=== PATIENT | male | born 1975 | race Caucasian/White ===

== ENCOUNTER 2019-03-31 05:55 | Day surgery (SDC) | payer OTHER ==
[~2019-03-31 05:55] MED LIST: Buffered Lidocaine 1% SYRIN* 1 ML/SYRINGE INTRADERM ONE
[2019-03-31] MEDS ORDERED: Famotidine IV* 10 MG/ML 2 ML (20 mg) IV ONE (06:00)
[2019-03-31] MEDS ORDERED: Dexamethasone IV* 4 MG/ML 1 ML (4 MG) IV SLOW PU ONE (06:00)
[2019-03-31] MEDS ORDERED: Lactated Ringers 1000 ML Bag* 1,000 ML IV SCH (06:00)
[2019-03-31] MEDS ORDERED: ceFAZolin 2 GM in NS PREMIX(*) 2 GM/100 ML BAG IVPB ONE (07:57)
[2019-03-31] MEDS ORDERED: Famotidine IV* 10 MG/ML 2 ML (20 mg) ONE (07:57)
[2019-03-31] MEDS ORDERED: Dexamethasone IV* 4 MG/ML 1 ML (4 MG) ONE (07:57)
[2019-03-31] MEDS ORDERED: Bupivacaine 0.25% EPI 200,000* 30 ML SDV ONE (09:43)
[2019-03-31] MEDS ORDERED: EPINEPHRINE 1 MG/ML 1 ML VIAL ONE (09:43)
[2019-03-31] MEDS ORDERED: KETAMINE HCL* 50 MG/ML 10 ML VIAL ONE (09:45)
[2019-03-31] MEDS ORDERED: Propofol* 10 MG/ML 20 ML BTL ONE (09:45)
[2019-03-31] MEDS ORDERED: fentaNYL* 50 MCG/ML 5 ML VIAL (250 MCG VIAL) ONE (09:45)
[2019-03-31] MEDS ORDERED: Ketorolac INJ* 30 MG/ML 1 ML VIAL ONE (09:45)
[2019-03-31] MEDS ORDERED: Midazolam* 1 MG/ML 5 ML VIAL (5 MG) ONE (09:45)
[2019-03-31] MEDS ORDERED: Lidocaine 2% PF * 5 ML VIAL ONE (09:46)
[2019-03-31] MEDS ORDERED: Morphine 4 MG/ML VIAL (1 ml) 4 MG/ML VIAL IV PRN (09:57)
[2019-03-31] MEDS ORDERED: Naloxone* 0.4 MG/ML 1 ML VIAL IV PRN (09:57)
[2019-03-31] MEDS ORDERED: PROCHLORPERAZINE INJ 5 MG/ML 2 ML VIAL IV PRN (09:57)
[2019-03-31] MEDS ORDERED: oxyCODONE/Acetamin 5/325 MG* TAB PO PRN (09:57)
[2019-03-31] MEDS ORDERED: fentaNYL* 50 MCG/ML 2 ML VIAL (100 MCG VIAL) IV PRN (09:57)
[2019-03-31] MEDS ORDERED: HYDROcodone/ACETAMIN 5-325 MG* 1 TAB PO PRN (09:57)
[2019-03-31] MEDS ORDERED: Ondansetron INJ* 2 MG/ML VIAL ONE (12:12)
[2019-03-31 14:48] VITALS: BP 144/94
--- NOTE | 2019-04-02 02:10 | OP ---
DATE OF OPERATION: 03/31/19 [facility] DATE OF : 79 SURGEON: Erich Pate MD SEAT MAKER: ELIZA Zamarripa. A physician multimedia production assistant was required for the length of the procedure, for assistance with patient positioning, retraction, instrumentation, and closure. ANESTHESIOLOGIST: Dr. Valeria Lo. ANESTHESIA: General anesthesia, local anesthesia using Marcaine 0.25% with epinephrine approximately 30 cc. PRE-OP DIAGNOSES: 1. Right knee tibial eminence fracture, subacute, otherwise known as an ACL distal avulsion fracture. 2. Right knee possible peripheral medial meniscus tear, nondisplaced. 3. Right knee possible anterior root lateral meniscus tear. POST-OP DIAGNOSIS: Right knee tibial eminence fracture, subacute, otherwise known as ACL distal avulsion fracture. OPERATIVE PROCEDURE: Right knee arthroscopic reduction internal fixation tibial eminence fracture, which included an ACL distal avulsion fracture, fracture also including the insertion site for anterior root lateral meniscus. ANTIBIOTICS: Ancef 2 g IV. IV FLUIDS: See anesthesia note. [id number] TIME: 112 minutes. TOURNIQUET TIME: 114 minutes at 300 mmHg. SPECIMENS: None. IMPLANTS: FiberWire #2 stitches x2. SutureTak [place] x1, both from [employer]. COMPLICATIONS: None. ESTIMATED BLOOD LOSS: Minimal. INDICATIONS FOR PROCEDURE: The patient is a 43-year-old man, prisoner, who injured himself on 09/04/18. The patient is now 7 months from his injury. Multiple delays in taking him to surgery. Delay in his presenting to my office. Delay in his getting an MRI scan and following up. A delay in scheduling surgery. MRI scan demonstrated no clear high grade injury to the ACL ligament itself, but it comminuted grade 4 type avulsion fracture of the tibial eminence at the insertion point of the ACL ligament. Some of these fracture fragments also look to include the anterior root, insertion of the lateral meniscus. The patient continued to have a symptomatic right knee and this is an operative injury so we proceeded forward with surgery. Discussed risks and potential complications of surgery. I booked the patient for a possible arthroscopic reduction internal fixation of the fracture. I also certainly booked him for a possible ACL reconstruction. All injuries of this type need to be booked for a possible ACL reconstruction as sometimes the ligament stretches before the bone fractures and sometimes the bone is not repairable. This is especially so with a chronic injury. I booked the patient for a possible ACL reconstruction with [id number] allograft. Given the MRI findings regarding both the medial and lateral meniscus, I also consented him for possible treatment of medial and/or lateral meniscus. DESCRIPTION OF PROCEDURE: In the preoperative holding, the patient signed a written consent. Operative extremity was marked in the preoperative holding. The patient was taken back to the operating room, placed supine on the operating room table. Sedated and intubated. Tourniquet was placed about the right proximal thigh. [place] bumps were placed under the right hemipelvis. A lateral post was applied to the table. Right lower extremity was prepped and draped. Surgical time-out was performed. Esmarch was applied and tourniquet was elevated. Anterolateral knee arthroscopy portal was established using standard technique. I evaluated the patellofemoral compartment. No articular cartilage injury. Moved to the medial compartment. No articular cartilage injury. No meniscus tear. Moved to the lateral compartment. No clear lateral meniscal tear. No articular cartilage injury. Moved to the intracondylar notch. No full-thickness disruption of the ACL. It was remarkable how smooth and healed everything looked initially, given the chronicity of this injury. With closer inspection there did appear to be some very minimal elevation of the insertion point of the ACL as well as the anterior root lateral meniscus. I decided that there was a possible success for arthroscopic reduction internal fixation at this point. Instruments were removed from the knee and the [facility] Knee Positioner System was applied to the table. The lateral post was removed. I reestablished my anterolateral portal. Under direct visualization established an anteromedial portal. I probed the ACL with arthroscopic probe and switching stick. Certainly no disruption. There did appear to be some laxity. Difficult to discern exactly where were the multiple fragments of the bone located. Intrameniscal ligament was noted to be present. It was certainly not pinched underneath any fragments. It was free. Routes of medial and lateral menisci were clearly visible. Neither was interposed between bony fragments. I was able to palpate through the ACL bony fragments. I lightly debrided the front of the ACL, distal end, and insertion. At this point, I considered more or less aggressive debridement at the fracture site. Given the significant level of healing visible at this point of tissues adjacent to the ACL, and the question of this patient's healing ability, I thought it would be a waste to debride the full fracture site before performing repair as I would do if this were an acute injury especially in a youngster. Therefore, I did not fully debride at the fracture site with arthroscopic shaver. I next proceeded with my repair. I used an [employer]rex retrograde shoulder Lasso suture passer. I placed 2 simple stitches through the substance of the distal ACL. One was more proximal than the other and one was more posterior and one was more anterior. I next used an Ar[employer] drill guide to place 2 drill tunnels. I made an incision just medial to the tibial tuberosity in the skin. Dissected down to bone. Placed my Ar[employer] drill guide and drilled a hole with the guide set at approximately 60 degrees. One hole was placed anteromedial to the insertion of the ACL and the other anterolateral. The anterolateral hole was also adjacent to the insertion point of the anterior root of the lateral meniscus. Drilled tunnels and brought sutures down through the 2 tunnels. I next tied the simple stitches over the bone tunnels. I tied 1 knot with the knee in 0 degrees of flexion and the other with the knee in 30 degrees of flexion. The stitch tied in 30 degrees of flexion certainly tightened up the ACL a little bit more. I was next probing my repair. I liked it, it tightened up the ACL and may be ligament looked much more robust and full. I was very happy with the overall appearance of the ACL with its size, with its tautness, and tension. Very happy. Examining the distal end of the ACL, I thought that the distal fracture fragment or one of them might still be slightly elevated a millimeter or so. I therefore tried for some additional fixation that I did not think was required but would help. I placed a SutureTak anchor just anterior to the insertion of the bony fragment and just posterior to the intrameniscal ligament. I used 1 suture from that anchor and placed a simple stitch in the distal ACL. While tying the knot of that simple stitch, the suture cut. I debrided the suture and decided against placing another anchor. Happy with the appearance of the ACL I took photographs and a variety of knee flexion positions. I then examined the knee and there was no laxity with Jaspal's or anterior drawer. I removed fluid and instruments from the knee. Arthroscopic skin incisions were closed with [id number] and twelve stitches using nylon 3.0 suture. Longitudinal skin incision distally was closed with buried simple stitches using Vicryl 2.0 suture in the subcutaneous tissue. Skin was closed with a running stitch using nylon 3.0 suture. Local anesthesia was injected about the subcutaneous aspect near the skin incisions. Xeroform, 4 x 4, ABDs, sterile Webril, shane bandage from foot to groin. Cooling unit and knee brace locked in extension. The patient was awakened, extubated, and transferred to the PACU. DISPOSITION: The patient was to change his dressing on postoperative day 3. Percocet as needed for pain control. Aspirin for DVT prophylaxis x2 weeks and Keflex for 7 days given the open incision and his being a prisoner to prevent infection. The patient will follow up with me in 10 to 14 days postoperatively. He will hold off on physical therapy until that point. He will be weightbearing as tolerated in the knee brace with crutches. At week 2 we will start him moving that knee and will start him in physical therapy. [id number]/[facility] #: [id number] [place]
== END 2019-03-31 15:19 ==
LOC: OR 05:55
PROVIDERS: ATTEND Orthopaedic Surgery
DX: S82.191A Other fracture of upper end of right tibia, initial encounter for closed fracture (principal); Y04.0XXA Assault by unarmed brawl or fight, initial encounter; Y92.9 Unspecified place or not applicable
CPT/HCPCS: C1713; J0690; J1100; J1885; J2250; J2405; J2704; J3010